=== PATIENT | male | born 1995 | race American Indian/Alaskan Native ===

== ENCOUNTER 2021-05-24 15:13 | Emergency (ER) | payer SELFPAY ==
[2021-05-24 15:43] VITALS: BP 131/78
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
== END 2021-05-24 16:37 | disposition home or self-care (01) ==
LOC: ED 15:13
DX: M79.18 Myalgia, other site (principal); F12.90 Cannabis use, unspecified, uncomplicated; V87.7XXA Person injured in collision between other specified motor vehicles (traffic), initial encounter; Y93.89 Activity, other specified; Y92.488 Other paved roadways as the place of occurrence of the external cause; Y99.8 Other external cause status
CPT/HCPCS: 99282